=== PATIENT | female | born 1990 | race Caucasian/White ===

== ENCOUNTER 2018-02-10 10:46 | Inpatient (IN) | payer OTHER ==
[2018-02-10 11:05] VITALS: BMI 21.9
--- NOTE | 2018-02-10 12:16 | HP ---
COWS - Scale Resting Pulse: 0= [place] 80 or Below Sweatin= Chills/Flushing Restless Observation: 1= Difficult to Sit Still Pupil Size: 1= Pupils >than Normal Bone or Joint Aches: 2= Severe Diffuse Aches Runny Nose/ Eye Tearin= Runny Nose/Eyes GI Upset > 30mins: 2= Nausea/Diarrhea Tremor Observation: 2= Slight Tremor Visible Yawning Observation: 2= >3x During Session Anxiety or Irritability: 2=Irritable/Anxious Goose Flesh Skin: 0=Smooth Skin COWS Score: [address] [facility] Chief Complaint: opiate withdrawal sx Allergies/Adverse Reactions: Allergies Allergy/AdvReac Type Severity Reaction Status Date / Time Penicillins Allergy Severe Difficulty Verified 02/10/18 11:20 Breathing History of Present Illness: 28 years old female with long history of opiate nicotine dependence denies medical issue but gi distress from opiate withdrawal has depression and anxiety is admitted to detox Exam Limitations: No Limitations - Ebola screening Have you traveled outside of the country in the last 21 days: No Have you had contact with anyone from an Ebola affected area: No Have you been sick,other than usual withdrawal symptoms: No Do you have a fever: No - Review of Systems Constitutional: Loss of Appetite, Changes in sleep, Unintentional Wgt. Loss, Unexplained wgt Loss EENT: reports: No Symptoms Reported Respiratory: reports: SOB with Exertion, Productive cough Cardiac: reports: No Symptoms Reported GI: reports: Nausea, Poor Appetite, Poor Fluid Intake, Indigestion, Abdominal cramping : reports: No Symptoms Reported Musculoskeletal: reports: Back Pain, Joint Pain, Muscle Pain, Neck Pain Integumentary: reports: Change in Color (multiple skin abrasion on face and arms ) Neuro: reports: Tremors Endocrine: reports: No Symptoms Reported Hematology: reports: No Symptoms Reported Psychiatric: reports: Judgement Intact, Anxious, Depressed Other Systems: Reviewed and Negative Patient History - Patient Medical History Hx Anemia: No Hx Asthma: Yes (on MDI) Hx Chronic Obstructive Pulmonary Disease (COPD): No Hx Cancer: No Hx Cardiac Disorders: No Hx Congestive Heart Failure: No Hx Hypertension: No Hx Hypercholesterolemia: No Hx Pacemaker: No HX Cerebrovascular Accident: No Hx Seizures: No Hx Dementia: No Hx Diabetes: No Hx Gastrointestinal Disorders: No Hx Liver Disease: No Hx Genitourinary Disorders: No Hx Sexually Transmitted Disorders: No Hx Renal Disease (ESRD): No Hx Thyroid Disease: No Hx Human Immunodeficiency Virus (HIV): No Hx Hepatitis C: No Hx Depression: Yes Hx Suicide Attempt: No Hx Bipolar Disorder: No Hx Schizophrenia: No - Patient Surgical History Past Surgical History: No Hx Neurologic Surgery: No Hx Cataract Extraction: No Hx Cardiac Surgery: No Hx Lung Surgery: No Hx Breast Surgery: No Hx Breast Biopsy: No Hx Abdominal Surgery: No Hx Appendectomy: No Hx Cholecystectomy: No Hx Genitourinary Surgery: No Hx Section: No Hx Orthopedic Surgery: No Hx Hysterectomy: No - PPD History Previous Implant?: Yes Documented Results: Negative w/proof Implanted On Prior [facility] Admission?: Yes Date: 11/26/14 Results: 0MM PPD to be Administered?: Yes - Reproductive History Patient is a Female of Child Bearing Age (11 -55 yrs old): Yes Last Menstrual Period: 02/10/17 Patient : No - Smoking Cessation Smoking history: Current every day smoker Have you smoked in the past 12 months: Yes Aproximately how many cigarettes per day: 10 Cigars Per Day: 0 Hx Chewing Tobacco Use: No Initiated information on smoking cessation: Yes 'Breaking Loose' booklet given: 02/10/18 - Substance & Tx. History Hx Alcohol Use: No Hx Substance Use: Yes Substance Use Type: Cocaine, Heroin, Opiates Hx Substance Use Treatment: Yes (2011 [facility]) - Substances Abused Heroin Route: Inhalation Frequency: Daily Amount used: 1 BUNDLE Age of first use: 16 Date of Last Use: 02/10/18 Cocaine Route: Inhalation Frequency: Daily Amount used: 4-5 BAGS Age of first use: 15 Date of Last Use: 02/08/18 PCP Route: Oral Frequency: 1-3 times last 30 days Family Disease History - Family Disease History Family Disease History: Diabetes: Grandparent Admission Physical Exam BHS - Vital Signs Vital Signs: Vital Signs - 24 hr 02/10/18 10:59 Temperature 98.2 F Pulse Rate 76 Respiratory 17 Rate Blood Pressure 144/73 - Physical General Appearance: Yes: Appropriately Dressed, Mild Distress, Thin, Tremorous, Irritable, Sweating, Anxious HEENTM: Yes: Hearing grossly Normal, Normocephalic, Normal Voice Respiratory: Yes: Chest Non-Tender, Lungs Clear, No Respiratory Distress, No Accessory Muscle Use, Wheezing, Expiration Neck: Yes: Supple, Trachea in good position Breast: Yes: Breasts Symetrical, No Discharge Cardiology: Yes: Regular Rhythm, Regular Rate, S1, S2 Abdominal: Yes: Non Tender, Flat, Soft, Increased Bowel Sounds Genitourinary: Yes: Within Normal Limits Back: Yes: Normal Inspection Musculoskeletal: Yes: full range of Motion, Gait Steady, Back pain, Muscle Pain , Other (left foot) Extremities: Yes: Non-Tender, Tremors, Swelling (left ankle) Neurological: Yes: Alert, Motor Strength 5/5 (left foot weakness), Normal Response, Depressed Affect Integumentary: Yes: Warm, Rash, Track [place] Lymphatic: Yes: Within Normal Limits - Diagnostic (1) Dermatitis Current Visit: Yes Status: Acute (2) Asthma Current Visit: Yes Status: Chronic Qualifiers: Asthma severity: mild Asthma persistence: intermittent Asthma complication type: with status asthmaticus Qualified Code(s): J45.22 - Mild intermittent asthma with status asthmaticus (3) Weight loss Current Visit: Yes Status: Acute (4) GERD (gastroesophageal reflux disease) Current Visit: Yes Status: Chronic Qualifiers: Esophagitis presence: without esophagitis Qualified Code(s): K21.9 - Gastro -esophageal reflux disease without esophagitis (5) Anxiety and depression Current Visit: Yes Status: Suspected (6) Heroin dependence Current Visit: Yes Status: Acute (7) Nicotine dependence Current Visit: Yes Status: Acute Qualifiers: Nicotine product type: cigarettes Substance use status: in withdrawal Qualified Code(s): F17.213 - Nicotine dependence, cigarettes, with withdrawal (8) Left foot pain Current Visit: Yes Status: Acute Cleared for Admission [facility] - Detox or Rehab [facility] Level of Care: Medically Managed Detox Regimen/Protocol: Methadone [facility] Breath Alcohol Content Breath Alcohol Content: 0 Urine Pregancy Test - Result Urine Test Results: Negative- NO Line Present Urine Drug Screen - Results Drug Screen Negative: No Urine Drug Screen Results: ZOEY-Cocaine, OPI-Opiates, PCP-Phencyclidine, OXY- Oxycodone
[2018-02-10] MEDS ORDERED: MAG HYDROX/AL HYDROX/SIMETH 30 ML UNIT-DOSE CUP PO PRN (12:23)
[2018-02-10] MEDS ORDERED: NICOTINE POLACRILEX 2 MG GUM BUC PRN (12:23)
[2018-02-10] MEDS ORDERED: MAGNESIUM HYDROX 2400MG/30ML ORAL SUSPENSION 30 ML CUP PO PRN (12:23)
[2018-02-10] MEDS ORDERED: MAGNESIUM CITRATE 300 ML BOTTLE PO PRN (12:23)
[2018-02-10] MEDS ORDERED: MENTHOL/PHENOL 1 EACH UD MM PRN (12:23)
[2018-02-10] MEDS ORDERED: LOPERAMIDE HCL 2 MG CAPSULE PO PRN (12:23)
[2018-02-10] MEDS ORDERED: METHADONE HCL 10 MG TABLET (FOR DETOX USE ONLY) PO ONE ×2 (13:45→23:00)
--- NOTE | 2018-02-10 13:50 | CONSULT ---
[facility] Psychiatric Consult - Data Date of interview: 02/10/18 Admission source: [facility] Identifying data: This is 28 years old female, single, homeless, with long history of opiate, Cocaine, nicotine dependence denies medical issue but gi distress from opiate withdrawal has depression and anxiety is admitted to detox. As per murine ntoxicology positive for PCP ghulam. Substance Abuse History: - Smoking Cessation. Smoking history: Current every day smoker. Have you smoked in the past 12 months: Yes. Aproximately how many cigarettes per day: 10. Cigars Per Day: 0. Hx Chewing Tobacco Use: No. Initiated information on smoking cessation: Yes. 'Breaking Loose' booklet given : 02/10/18. - Substance & Tx. History. Hx Alcohol Use: No. Hx Substance Use: Yes. Substance Use Type: Cocaine, Heroin, Opiates. Hx Substance Use Treatment : Yes (2011). - Substances Abused. Heroin. Route: Inhalation. Frequency: Daily. Amount used: 1 BUNDLE. Age of first use: 16. Date of Last Use: 02/10/18. Cocaine. Route: Inhalation. Frequency: Daily. Amount used : 4-5 BAGS. Age of first use: 15. Date of Last Use: 02/08/18. PCP. Route : Oral. Frequency: 1-3 times last 30 days Medical History: Asthma, GERD, Weight loss history, Dermatitis history, Psychiatric History: Patient reports history of depression and anxiety, reports no medications taking prior to admission, poor historian with unclear psychiatric hospitalization history. Physical/Sexual Abuse/Trauma History: Unknown Additional Comment: Observation. Deto Unit Care Protocol Mental Status Exam - Mental Status Exam Alert and Oriented to: Person Cognitive Function: Fair Patient Appearance: Unkempt Mood: Sad Affect: Flat Patient Behavior: Sedated, Uncooperative Speech Pattern: Delayed Voice Loudness: Moderately Soft/Quiet Thought Process: Circumstantial, Thought Blocking Thought Disorder: Being Controlled Hallucinations: Denies Suicidal Ideation: Denies Homicidal Ideation: Denies Insight/Judgement: Fair Sleep: Fair Appetite: Weight loss Muscle strength/Tone: Moderate Hypotonicity Gait/Station: Shuffling Additional Comments: Observation. Deto Unit Care Protocol Psychiatric Findings - Problem List ([place] 1, 2,3) (1) Dermatitis Current Visit: Yes Status: Acute (2) Heroin dependence Current Visit: Yes Status: Acute (3) Nicotine dependence Current Visit: Yes Status: Acute Qualifiers: Nicotine product type: cigarettes Substance use status: in withdrawal Qualified Code(s): F17.213 - Nicotine dependence, cigarettes, with withdrawal (4) Asthma Current Visit: Yes Status: Chronic Qualifiers: Asthma severity: mild Asthma persistence: intermittent Asthma complication type: with status asthmaticus Qualified Code(s): J45.22 - Mild intermittent asthma with status asthmaticus (5) GERD (gastroesophageal reflux disease) Current Visit: Yes Status: Chronic Qualifiers: Esophagitis presence: without esophagitis Qualified Code(s): K21.9 - Gastro -esophageal reflux disease without esophagitis (6) Anxiety and depression Current Visit: Yes Status: Suspected (7) Eye bruise Current Visit: No Status: Acute Comment: fell and hit left eye 4 days ago. (8) Cocaine dependence Current Visit: No Status: Chronic (9) Crack cocaine use Current Visit: No Status: Chronic (10) Drug-induced mood disorder Current Visit: No Status: Chronic (11) Opioid dependence Current Visit: No Status: Chronic - Initial Treatment Plan Initial Treatment Plan: Observation. Deto Unit Care Protocol
[2018-02-10] MEDS: BACITRACIN 0.9 GM PACKET TP SCH ×3 (14:15→22:20)
[2018-02-10] MEDS: RANITIDINE HCL 150 MG TABLET (FP) PO SCH ×2 (14:17→22:20)
[2018-02-10] MEDS: diazePAM 5 MG TABLET PO PRN ×2 (14:17→22:30)
[2018-02-10] MEDS: NICOTINE 14 MG/24 HOURS TOPICAL PATCH TD SCH (14:17)
[2018-02-10] MEDS: THIAMINE HCL 100 MG TABLET (FP) PO SCH (22:47)
[2018-02-11 09:56] LABS: HEMATOCRIT 40.4 % (32.4-45.2); HEMOGLOBIN 13.7 GM/dL (10.7-15.3); MCH 29.9 pg (25.7-33.7); MCHC 33.9 g/dl (32.0-36.0); MEAN CELL VOLUME 88.2 fl (80-96); MEAN PLT VOLUME 10.3 fl (7.5-11.1); PLATELET COUNT 268 K/MM3 (134-434); RBC 4.58 M/mm3 (3.60-5.2); RDW 14.7 % (11.6-15.6); WHITE BLOOD COUNT 9.3 K/mm3 (4.0-10.0)
[2018-02-11] MEDS ORDERED: METHADONE HCL 10 MG TABLET (FOR DETOX USE ONLY) PO ONE (10:00)
--- NOTE | 2018-02-11 10:16 | PN ---
BHS COWS - Scale Resting Pulse: 0= [place] 80 or Below Sweatin= Chills/Flushing Restless Observation: 3= Extraneous Movement Pupil Size: 1= Pupils >than Normal Bone or Joint Aches: 2= Severe Diffuse Aches Runny Nose/ Eye Tearin= Runny Nose/Eyes GI Upset > 30mins: 2= Nausea/Diarrhea Tremor Observation of Outstretched Hands: 2= Slight Tremor Visible Yawning Observation: 1= 1-2x During Session Anxiety or Irritability: 2=Irritable/Anxious Goose Flesh Skin: 0=Smooth Skin COWS Score: 16 S Progress Note (SOAP) Subjective: alert,irritable,anxious,interrupted sleep,tremor,pain in the body and back Objective: 02/11/18 10:14 Vital Signs Temperature 98.4 F 02/11/18 09:06 Pulse Rate 70 02/11/18 09:06 Respiratory Rate 19 02/11/18 09:06 Blood Pressure 135/75 02/11/18 09:06 O2 Sat by Pulse Oximetry (%) ekg nsr,normal ecg qt/qtc 372/434 Laboratory Last Values WBC 9.3 K/mm3 (4.0-10.0) 02/11/18 06:00 RBC 4.58 M/mm3 (3.60-5.2) 02/11/18 06:00 Hgb 13.7 GM/dL (10.7-15.3) 02/11/18 06:00 Hct 40.4 % (32.4-45.2) 02/11/18 06:00 MCV 88.2 fl (80-96) 02/11/18 06:00 MCH 29.9 pg (25.7-33.7) 02/11/18 06:00 MCHC 33.9 g/dl (32.0-36.0) 02/11/18 06:00 RDW 14.7 % (11.6-15.6) D 02/11/18 06:00 Plt Count 268 K/MM3 (134-434) D 02/11/18 06:00 MPV 10.3 fl (7.5-11.1) 02/11/18 06:00 HIV 1&2 Antibody Screen Negative 02/10/18 12:45 HIV P24 Antigen Negative 02/10/18 12:45 labs pending Assessment: 02/11/18 10:15 withdrawal symptom Plan: continue detox
[2018-02-11] MEDS: PRENATAL VITAMINS W/ FOLIC ACID TABLET (FP) PO SCH (10:17)
[2018-02-11] MEDS: RANITIDINE HCL 150 MG TABLET (FP) PO SCH ×2 (10:17→22:14)
[2018-02-11] MEDS: BACITRACIN 0.9 GM PACKET TP SCH ×4 (10:18→22:14)
[2018-02-11] MEDS: NICOTINE 14 MG/24 HOURS TOPICAL PATCH TD SCH (10:20)
[2018-02-11] MEDS: diazePAM 5 MG TABLET PO PRN ×2 (10:21→22:14)
--- NOTE | 2018-02-11 11:32 | EKG ---
Test Reason : Blood Pressure : / mmHG Vent. Rate : 082 BPM Atrial Rate : 082 BPM P-R Int : 126 ms QRS Dur : 084 ms QT Int : 372 ms P-R-T Axes : 047 063 049 degrees QTc Int : 434 ms NORMAL SINUS RHYTHM NORMAL ECG Confirmed by MD WENDY, HERRERA ([id number]) on 02/11/2018 11:31:58 AM Referred By: Confirmed By:HERRERA NGUYEN MD
[2018-02-11 12:01] LABS: CHLORIDE 109 mmol/L (98-107); POTASSIUM 4.4 mmol/L (3.5-5.1); SODIUM 144 mmol/L (136-145)
[2018-02-11 12:10] LABS: ALBUMIN 3.7 g/dl (3.4-5.0); ALK PHOS 67 U/L (45-117); ANION GAP 7 (8-16); BILIRUBIN,TOTAL 0.3 mg/dL (0.2-1.0); BLOOD UREA NITROGEN 14 mg/dL (7-18); CO2 28 mmol/L (21-32); CREATININE 0.9 mg/dL (0.55-1.02); GLUCOSE,RANDOM 87 mg/dL (74-106); SGOT/AST 17 U/L (15-37); SGPT/ALT 20 U/L (12-78); TOT PROT 7.2 g/dl (6.4-8.2)
[2018-02-11] MEDS: THIAMINE HCL 100 MG TABLET (FP) PO SCH (22:14)
[2018-02-11] MEDS: ALBUTEROL SO4 8 GM HFA INHALER IH PRN (22:46)
[2018-02-11] MEDS ORDERED: ALBUTEROL SO4 2.5/IPRATROPIUM 0.5 INH SOL 3 ML VIAL.NEB. NEB PRN (23:10)
[2018-02-11] MEDS: P-EPHED 60MG/TRIPROLIDI 2.5MG TABLET PO PRN (23:39)
[2018-02-11] MEDS: guaiFENesin/D-METHORPHAN HB 10 ML UNIT-DOSE CUPS PO PRN (23:39)
[2018-02-12] MEDS ORDERED: METHADONE HCL 5 MG TABLET (FOR DETOX USE ONLY) PO ONE (10:00)
[2018-02-12] MEDS: RANITIDINE HCL 150 MG TABLET (FP) PO SCH ×2 (10:45→22:13)
[2018-02-12] MEDS: BACITRACIN 0.9 GM PACKET TP SCH ×4 (10:46→22:13)
[2018-02-12] MEDS: diazePAM 5 MG TABLET PO PRN ×3 (10:46→21:00)
[2018-02-12] MEDS: PRENATAL VITAMINS W/ FOLIC ACID TABLET (FP) PO SCH (10:46)
[2018-02-12] MEDS: NICOTINE 14 MG/24 HOURS TOPICAL PATCH TD SCH (10:48)
--- NOTE | 2018-02-12 11:46 | PN ---
BHS COWS - Scale Resting Pulse: 0= [place] 80 or Below Sweatin= Chills/Flushing Restless Observation: 3= Extraneous Movement Pupil Size: 1= Pupils >than Normal Bone or Joint Aches: 2= Severe Diffuse Aches Runny Nose/ Eye Tearin= Nasal Congestion GI Upset > 30mins: 2= Nausea/Diarrhea Tremor Observation of Outstretched Hands: 2= Slight Tremor Visible Yawning Observation: 1= 1-2x During Session Anxiety or Irritability: 2=Irritable/Anxious Goose Flesh Skin: 0=Smooth Skin COWS Score: 15 BHS Progress Note (SOAP) Subjective: alert,irritable,anxious,interrupted sleep,tremor,pain in the body Objective: 02/12/18 11:45 Vital Signs Temperature 97.4 F L 02/12/18 09:09 Pulse Rate 63 02/12/18 09:09 Respiratory Rate 18 02/12/18 09:09 Blood Pressure 104/63 02/12/18 09:09 O2 Sat by Pulse Oximetry (%) Laboratory Last Values WBC 9.3 K/mm3 (4.0-10.0) 02/11/18 06:00 RBC 4.58 M/mm3 (3.60-5.2) 02/11/18 06:00 Hgb 13.7 GM/dL (10.7-15.3) 02/11/18 06:00 Hct 40.4 % (32.4-45.2) 02/11/18 06:00 MCV 88.2 fl (80-96) 02/11/18 06:00 MCH 29.9 pg (25.7-33.7) 02/11/18 06:00 MCHC 33.9 g/dl (32.0-36.0) 02/11/18 06:00 RDW 14.7 % (11.6-15.6) D 02/11/18 06:00 Plt Count 268 K/MM3 (134-434) D 02/11/18 06:00 MPV 10.3 fl (7.5-11.1) 02/11/18 06:00 Sodium 144 mmol/L (136-145) 02/11/18 06:00 Potassium 4.4 mmol/L (3.5-5.1) 02/11/18 06:00 Chloride 109 mmol/L (98-107) H 02/11/18 06:00 Carbon Dioxide 28 mmol/L (21-32) 02/11/18 06:00 Anion Gap 7 (8-16) L 02/11/18 06:00 BUN 14 mg/dL (7-18) 02/11/18 06:00 Creatinine 0.9 mg/dL (0.55-1.02) 02/11/18 06:00 Creat Clearance w eGFR > 60 (>60) 02/11/18 06:00 Random Glucose 87 mg/dL (74-106) 02/11/18 06:00 Calcium 9.0 mg/dL (8.5-10.1) 02/11/18 06:00 Total Bilirubin 0.3 mg/dL (0.2-1.0) 02/11/18 06:00 AST 17 U/L (15-37) 02/11/18 06:00 ALT 20 U/L (12-78) 02/11/18 06:00 Alkaline Phosphatase 67 U/L (45-117) 02/11/18 06:00 Total Protein 7.2 g/dl (6.4-8.2) 02/11/18 06:00 Albumin 3.7 g/dl (3.4-5.0) 02/11/18 06:00 RPR Titer Nonreactive (NONREACTIVE) 02/11/18 06:00 HIV 1&2 Antibody Screen Negative 02/10/18 12:45 HIV P24 Antigen Negative 02/10/18 12:45 Assessment: 02/12/18 11:45 withdrawal symptom Plan: continue detox
[2018-02-12 18:02] LABS: URINE APPEARANCE CLEAR; URINE BILIRUBIN NEGATIVE (<2.0 mg/dL); URINE COLOR YELLOW; URINE GLUCOSE (UA) NEGATIVE (NEGATIVE); URINE KETONE NEGATIVE (NEGATIVE); URINE LEUK ESTERASE NEGATIVE (NEGATIVE); URINE NITRITE NEGATIVE (NEGATIVE); URINE PROTEIN NEGATIVE (NEGATIVE); URINE UROBILINOGEN NEGATIVE mg/dL (0.2-1.0)
[2018-02-12] MEDS: MELATONIN 5 MG TABLETS PO PRN (22:13)
[2018-02-12] MEDS: THIAMINE HCL 100 MG TABLET (FP) PO SCH (22:14)
[2018-02-12] MEDS: ALBUTEROL SO4 8 GM HFA INHALER IH PRN (22:20)
[2018-02-12] MEDS: guaiFENesin/D-METHORPHAN HB 10 ML UNIT-DOSE CUPS PO PRN (22:20)
[2018-02-13] MEDS: diazePAM 5 MG TABLET PO PRN ×3 (01:00→10:21)
[2018-02-13] MEDS ORDERED: METHADONE HCL 5 MG TABLET (FOR DETOX USE ONLY) PO ONE (10:00)
--- NOTE | 2018-02-13 10:10 | PN ---
BHS Progress Note (SOAP) Subjective: alert,irritable,anxious,interrupted sleep,pain in the body and back Objective: 02/13/18 10:08 Vital Signs Temperature 97.5 F L 02/13/18 07:41 Pulse Rate 74 02/13/18 07:41 Respiratory Rate 16 02/13/18 07:41 Blood Pressure 110/66 02/13/18 07:41 O2 Sat by Pulse Oximetry (%) Assessment: 02/13/18 10:10 withdrawal symptom Plan: continue detox
[2018-02-13] MEDS: BACITRACIN 0.9 GM PACKET TP SCH ×4 (10:20→22:11)
[2018-02-13] MEDS: PRENATAL VITAMINS W/ FOLIC ACID TABLET (FP) PO SCH (10:20)
[2018-02-13] MEDS: RANITIDINE HCL 150 MG TABLET (FP) PO SCH ×2 (10:20→22:10)
[2018-02-13] MEDS: guaiFENesin/D-METHORPHAN HB 10 ML UNIT-DOSE CUPS PO PRN ×2 (10:23→22:12)
[2018-02-13] MEDS: NICOTINE 14 MG/24 HOURS TOPICAL PATCH TD SCH (10:46)
[2018-02-13] MEDS: hydrOXYzine PAMOATE 50 MG CAPSULE (FP) PO PRN (13:19)
[2018-02-13] MEDS: THIAMINE HCL 100 MG TABLET (FP) PO SCH (22:10)
[2018-02-13] MEDS: MELATONIN 5 MG TABLETS PO PRN (22:13)
--- NOTE | 2018-02-14 09:36 | PN ---
S Progress Note (SOAP) Subjective: alert,irritable,anxious,interrupted sleep, Objective: 02/14/18 09:36 Vital Signs Temperature 98.0 F 02/14/18 09:17 Pulse Rate 92 H 02/14/18 09:17 Respiratory Rate 18 02/14/18 09:17 Blood Pressure 121/92 02/14/18 09:17 O2 Sat by Pulse Oximetry (%) Assessment: 02/14/18 09:36 withdrawal symptom Plan: continue detox,discharge in am
[2018-02-14] MEDS ORDERED: METHADONE HCL 10 MG TABLET (FOR DETOX USE ONLY) PO ONE (10:00)
[2018-02-14] MEDS: RANITIDINE HCL 150 MG TABLET (FP) PO SCH ×2 (10:27→22:16)
[2018-02-14] MEDS: NICOTINE 14 MG/24 HOURS TOPICAL PATCH TD SCH (10:27)
[2018-02-14] MEDS: PRENATAL VITAMINS W/ FOLIC ACID TABLET (FP) PO SCH (10:27)
[2018-02-14] MEDS: BACITRACIN 0.9 GM PACKET TP SCH ×3 (10:27→22:15)
[2018-02-14] MEDS: hydrOXYzine PAMOATE 50 MG CAPSULE (FP) PO PRN ×3 (10:29→22:16)
[2018-02-14] MEDS: ACETAMINOPHEN 325 MG TABLET (FP) PO PRN ×2 (10:30→17:10)
[2018-02-14] MEDS ORDERED: cloNIDine HCL 0.1 MG TABLET PO ONE (11:24)
[2018-02-14] MEDS: guaiFENesin/D-METHORPHAN HB 10 ML UNIT-DOSE CUPS PO PRN (20:40)
[2018-02-14] MEDS: P-EPHED 60MG/TRIPROLIDI 2.5MG TABLET PO PRN (20:41)
[2018-02-14] MEDS: THIAMINE HCL 100 MG TABLET (FP) PO SCH (22:15)
[2018-02-14] MEDS: cloNIDine HCL 0.1 MG TABLET PO SCH (22:16)
[2018-02-15] MEDS: hydrOXYzine PAMOATE 50 MG CAPSULE (FP) PO PRN ×2 (02:16→09:08)
[2018-02-15] MEDS ORDERED: METHADONE HCL 5 MG TABLET (FOR DETOX USE ONLY) PO ONE (06:00)
--- NOTE | 2018-02-15 09:03 | PN ---
S Progress Note (SOAP) Subjective: alert,no complaint Objective: 02/15/18 09:02 Vital Signs Temperature 96.4 F L 02/15/18 07:26 Pulse Rate 69 02/15/18 07:26 Respiratory Rate 16 02/15/18 07:26 Blood Pressure 99/54 02/15/18 07:26 O2 Sat by Pulse Oximetry (%) Assessment: 02/15/18 09:02 detox completed,no withdrawal symptom Plan: discharge today,follow up with after care program as arrangement
--- NOTE | 2018-02-15 09:05 | DS ---
[facility] Detox Discharge Summary Admission Date: 02/10/18 Discharge Date: 02/15/18 - History Present History: Opioid Dependence Additional Comments: follow up with after care program as arrangement Pertinent Past History: asthma gerd nicotine dependence - Physical Exam Results Vital Signs: Vital Signs Temperature 96.4 F L 02/15/18 07:26 Pulse Rate 69 02/15/18 07:26 Respiratory Rate 16 02/15/18 07:26 Blood Pressure 99/54 02/15/18 07:26 O2 Sat by Pulse Oximetry (%) Pertinent Admission Physical Exam Findings: withdrawal signs and symptom Vital Signs Temperature 96.4 F L 02/15/18 07:26 Pulse Rate 69 02/15/18 07:26 Respiratory Rate 16 02/15/18 07:26 Blood Pressure 99/54 02/15/18 07:26 O2 Sat by Pulse Oximetry (%) Laboratory Last Values WBC 9.3 K/mm3 (4.0-10.0) 02/11/18 06:00 RBC 4.58 M/mm3 (3.60-5.2) 02/11/18 06:00 Hgb 13.7 GM/dL (10.7-15.3) 02/11/18 06:00 Hct 40.4 % (32.4-45.2) 02/11/18 06:00 MCV 88.2 fl (80-96) 02/11/18 06:00 MCH 29.9 pg (25.7-33.7) 02/11/18 06:00 MCHC 33.9 g/dl (32.0-36.0) 02/11/18 06:00 RDW 14.7 % (11.6-15.6) D 02/11/18 06:00 Plt Count 268 K/MM3 (134-434) D 02/11/18 06:00 MPV 10.3 fl (7.5-11.1) 02/11/18 06:00 Sodium 144 mmol/L (136-145) 02/11/18 06:00 Potassium 4.4 mmol/L (3.5-5.1) 02/11/18 06:00 Chloride 109 mmol/L (98-107) H 02/11/18 06:00 Carbon Dioxide 28 mmol/L (21-32) 02/11/18 06:00 Anion Gap 7 (8-16) L 02/11/18 06:00 BUN 14 mg/dL (7-18) 02/11/18 06:00 Creatinine 0.9 mg/dL (0.55-1.02) 02/11/18 06:00 Creat Clearance w eGFR > 60 (>60) 02/11/18 06:00 Random Glucose 87 mg/dL (74-106) 02/11/18 06:00 Calcium 9.0 mg/dL (8.5-10.1) 02/11/18 06:00 Total Bilirubin 0.3 mg/dL (0.2-1.0) 02/11/18 06:00 AST 17 U/L (15-37) 02/11/18 06:00 ALT 20 U/L (12-78) 02/11/18 06:00 Alkaline Phosphatase 67 U/L (45-117) 02/11/18 06:00 Total Protein 7.2 g/dl (6.4-8.2) 02/11/18 06:00 Albumin 3.7 g/dl (3.4-5.0) 02/11/18 06:00 Urine Color Yellow 02/12/18 14:00 Urine Appearance Clear 02/12/18 14:00 Urine pH 7.0 (5.0-8.0) 02/12/18 14:00 Ur Specific [place] 1.016 (1.001-1.035) 02/12/18 14:00 Urine Protein Negative (NEGATIVE) 02/12/18 14:00 Urine Glucose (UA) Negative (NEGATIVE) 02/12/18 14:00 Urine Ketones Negative (NEGATIVE) 02/12/18 14:00 Urine Blood Negative (NEGATIVE) 02/12/18 14:00 Urine Nitrite Negative (NEGATIVE) 02/12/18 14:00 Urine Bilirubin Negative (<2.0 mg/dL) 02/12/18 14:00 Urine Urobilinogen Negative mg/dL (0.2-1.0) 02/12/18 14:00 Ur Leukocyte Esterase Negative (NEGATIVE) 02/12/18 14:00 RPR Titer Nonreactive (NONREACTIVE) 02/11/18 06:00 HIV 1&2 Antibody Screen Negative 02/10/18 12:45 HIV P24 Antigen Negative 02/10/18 12:45 - Treatment Hospital Course: Detox Protocol Followed, Detoxed Safely, Responded well, Discharged Condition Good Patient has Accepted a Rehab Referral to: declined - Medication Discharge Medications: Ambulatory Orders Albuterol Sulfate Inhaler - [Ventolin Hfa Inhaler -] 1 - 2 inh PO QID 02/10/18 - Diagnosis (1) Opioid dependence with withdrawal Current Visit: Yes Status: Acute (2) Nicotine dependence Current Visit: Yes Status: Acute Qualifiers: Nicotine product type: cigarettes Substance use status: in withdrawal Qualified Code(s): F17.213 - Nicotine dependence, cigarettes, with withdrawal (3) Asthma Current Visit: Yes Status: Chronic Qualifiers: Asthma severity: mild Asthma persistence: intermittent Asthma complication type: with status asthmaticus Qualified Code(s): J45.22 - Mild intermittent asthma with status asthmaticus (4) GERD (gastroesophageal reflux disease) Current Visit: Yes Status: Chronic Qualifiers: Esophagitis presence: without esophagitis Qualified Code(s): K21.9 - Gastro -esophageal reflux disease without esophagitis - AMA Did Patient Leave Against Medical Advice: No
[2018-02-15] MEDS: RANITIDINE HCL 150 MG TABLET (FP) PO SCH (09:06)
[2018-02-15] MEDS: cloNIDine HCL 0.1 MG TABLET PO SCH (09:06)
[2018-02-15] MEDS: NICOTINE 14 MG/24 HOURS TOPICAL PATCH TD SCH (09:06)
[2018-02-15] MEDS: BACITRACIN 0.9 GM PACKET TP SCH (09:06)
[2018-02-15] MEDS: PRENATAL VITAMINS W/ FOLIC ACID TABLET (FP) PO SCH (09:06)
[2018-02-15] MEDS: guaiFENesin/D-METHORPHAN HB 10 ML UNIT-DOSE CUPS PO PRN (09:17)
[2018-02-15 11:24] VITALS: BP 90/50; PULSE 77; TEMP 96.8
== END 2018-02-15 09:22 | disposition home or self-care (01) | DRG 773 ==
LOC: YASAS 10:46 → Y6N 13:06
PROVIDERS: ADMIT Surgery; ATTEND Surgery
PROC: HZ2ZZZZ Detoxification Services for Substance Abuse Treatment (ICD-10-PCS; principal; 2018-02-10)
DX: F11.23 Opioid dependence with withdrawal (principal); F14.20 Cocaine dependence, uncomplicated; F17.210 Nicotine dependence, cigarettes, uncomplicated; F41.8 Other specified anxiety disorders; F19.24 Other psychoactive substance dependence with psychoactive substance-induced mood disorder; K21.9 Gastro-esophageal reflux disease without esophagitis; L30.9 Dermatitis, unspecified; M25.572 Pain in left ankle and joints of left foot; R63.4 Abnormal weight loss; Z68.21 Body mass index [BMI] 21.0-21.9, adult; S00.12XA Contusion of left eyelid and periocular area, initial encounter; W19.XXXA Unspecified fall, initial encounter; Y93.89 Activity, other specified; Y92.89 Other specified places as the place of occurrence of the external cause; Y99.8 Other external cause status
CPT/HCPCS: 36415; 73630-TC-LT; 80053; 81003; 85027; 86593; 87389; 93005; 93010; 94640; J0735; J7620

== ENCOUNTER 2020-06-17 08:31 | Inpatient (IN) | payer OTHER ==
[2020-06-17 09:32] VITALS: BMI 22.6
[2020-06-17] MEDS ORDERED: METHADONE HCL 10 MG TABLET (FOR DETOX USE ONLY) PO ONE (10:14)
[2020-06-17] MEDS ORDERED: ACETAMINOPHEN 325 MG TABLET (FP) PO PRN (10:14)
[2020-06-17] MEDS ORDERED: MAG HYDROX/AL HYDROX/SIMETH 30 ML UNIT-DOSE CUP PO PRN (10:14)
[2020-06-17] MEDS ORDERED: BISMUTH SUBSALICYLATE 262 MG/15 ML BTL PO PRN (10:14)
[2020-06-17] MEDS ORDERED: ONDANSETRON *ODT* 4 MG TABLET SL PRN (10:14)
[2020-06-17] MEDS ORDERED: MAGNESIUM CITRATE 300 ML BOTTLE PO PRN (10:14)
[2020-06-17] MEDS ORDERED: MAGNESIUM HYDROX 2400MG/30ML ORAL SUSPENSION 30 ML CUP PO PRN (10:14)
[2020-06-17] MEDS ORDERED: MENTHOL/PHENOL 1 EACH UD MM PRN (10:14)
[2020-06-17] MEDS ORDERED: ALBUTEROL SO4 HFA INHALER IH PRN (10:17)
[2020-06-17] MEDS: chlordiazePOXIDE HCL 25 MG CAPSULE PO SCH ×3 (11:02→22:01)
[2020-06-17] MEDS: PRENATAL VITAMINS W/ FOLIC ACID TABLET (FP) PO SCH (11:09)
[2020-06-17] MEDS: NICOTINE POLACRILEX 2 MG GUM BUC PRN ×2 (11:20→22:04)
[2020-06-17] MEDS: ACETAMINOPHEN 325 MG TABLET (FP) PO PRN ×2 (11:20→17:09)
[2020-06-17] MEDS ORDERED: hydrOXYzine PAMOATE 25 MG CAPSULE (FP) PO SCH (14:00)
[2020-06-17 14:31] LABS: POTASSIUM 3.9 mmol/L (3.5-5.1)
[2020-06-17 14:34] LABS: HEMATOCRIT 39.3 % (32.4-45.2); HEMOGLOBIN 13.2 GM/dL (10.7-15.3); MCH 30.8 pg (25.7-33.7); MCHC 33.5 g/dl (32.0-36.0); MEAN CELL VOLUME 92.1 fl (80-96); MEAN PLT VOLUME 10.5 fl (7.5-11.1); PLATELET COUNT 214 K/MM3 (134-434); RBC 4.27 M/mm3 (3.60-5.2); RDW 14.2 % (11.6-15.6); WHITE BLOOD COUNT 6.3 K/mm3 (4.0-10.0)
[2020-06-17 14:38] LABS: ALBUMIN 3.8 g/dl (3.4-5.0); BLOOD UREA NITROGEN 17.9 mg/dL (7-18); CALCIUM 8.9 mg/dL (8.5-10.1)
[2020-06-17 14:43] LABS: BILIRUBIN,TOTAL 0.4 mg/dL (0.2-1); CREATININE 0.8 mg/dL (0.55-1.3); TOT PROT 7.1 g/dl (6.4-8.2)
[2020-06-17] MEDS: hydrOXYzine PAMOATE 25 MG CAPSULE (FP) PO PRN ×2 (15:17→22:01)
[2020-06-17 15:27] LABS: HIV INTERPRETATION NEGATIVE (NEGATIVE)
[2020-06-17] MEDS: METHOCARBAMOL 500 MG TABLET PO PRN (17:08)
[2020-06-17] MEDS: chlordiazePOXIDE HCL 25 MG CAPSULE PO PRN (19:51)
[2020-06-17] MEDS: THIAMINE HCL 100 MG TABLET (FP) PO SCH (22:01)
[2020-06-17] MEDS: MELATONIN 5 MG TABLETS PO SCH (22:01)
[2020-06-18] MEDS: chlordiazePOXIDE HCL 25 MG CAPSULE PO PRN ×2 (00:46→14:27)
[2020-06-18] MEDS: IBUPROFEN 400 MG TABLET (FP) PO PRN (00:46)
[2020-06-18] MEDS: cloNIDine HCL 0.1 MG TABLET PO PRN ×3 (00:47→18:48)
[2020-06-18] MEDS: hydrOXYzine PAMOATE 25 MG CAPSULE (FP) PO PRN ×4 (04:35→22:11)
[2020-06-18] MEDS: chlordiazePOXIDE HCL 25 MG CAPSULE PO SCH ×4 (05:12→23:05)
[2020-06-18] MEDS ORDERED: METHADONE HCL 10 MG TABLET (FOR DETOX USE ONLY) ONE (09:05)
[2020-06-18] MEDS ORDERED: METHADONE HCL 5 MG TABLET (FOR DETOX USE ONLY) ONE (09:05)
[2020-06-18] MEDS ORDERED: METHADONE (DETOX) 20 MG, METHADONE (DETOX) 5 MG PO ONE (10:00)
[2020-06-18] MEDS: PRENATAL VITAMINS W/ FOLIC ACID TABLET (FP) PO SCH (10:00)
[2020-06-18] MEDS: METHOCARBAMOL 500 MG TABLET PO PRN ×3 (10:04→22:12)
[2020-06-18] MEDS: NICOTINE POLACRILEX 2 MG GUM BUC PRN ×2 (12:45→14:59)
[2020-06-18] MEDS: ACETAMINOPHEN 325 MG TABLET (FP) PO PRN (17:46)
[2020-06-18] MEDS ORDERED: traZODone HCL 50 MG TABLET (FP) PO SCH (22:00)
[2020-06-18] MEDS: MELATONIN 5 MG TABLETS PO SCH (22:11)
[2020-06-18] MEDS: THIAMINE HCL 100 MG TABLET (FP) PO SCH (22:11)
[2020-06-18] MEDS: traZODone HCL 50 MG TABLET (FP) PO SCH (23:05)
[2020-06-19] MEDS: chlordiazePOXIDE HCL 25 MG CAPSULE PO SCH ×4 (07:15→21:59)
[2020-06-19] MEDS: hydrOXYzine PAMOATE 25 MG CAPSULE (FP) PO PRN ×3 (07:16→17:04)
[2020-06-19] MEDS: NICOTINE POLACRILEX 2 MG GUM BUC PRN ×2 (07:51→15:10)
[2020-06-19] MEDS ORDERED: METHADONE HCL 10 MG TABLET (FOR DETOX USE ONLY) PO ONE (10:00)
[2020-06-19] MEDS: PRENATAL VITAMINS W/ FOLIC ACID TABLET (FP) PO SCH (10:02)
[2020-06-19] MEDS: LIDOCAINE 5% TOPICAL PATCH TP SCH (11:24)
[2020-06-19] MEDS: IBUPROFEN 400 MG TABLET (FP) PO PRN ×2 (11:25→22:12)
[2020-06-19] MEDS: METHOCARBAMOL 500 MG TABLET PO PRN (13:37)
[2020-06-19] MEDS: ACETAMINOPHEN 325 MG TABLET (FP) PO PRN (17:06)
[2020-06-19] MEDS: cloNIDine HCL 0.1 MG TABLET PO PRN (20:26)
[2020-06-19] MEDS: MELATONIN 5 MG TABLETS PO SCH (21:53)
[2020-06-19] MEDS: THIAMINE HCL 100 MG TABLET (FP) PO SCH (21:53)
[2020-06-19] MEDS: traZODone HCL 50 MG TABLET (FP) PO SCH (21:59)
[2020-06-19] MEDS: LIDOCAINE PATCH REMOVAL MC SCH (22:01)
[2020-06-20] MEDS ORDERED: chlordiazePOXIDE HCL 10 MG CAPSULE PO PRN
[2020-06-20] MEDS: chlordiazePOXIDE HCL 10 MG CAPSULE PO SCH ×4 (05:22→22:16)
[2020-06-20] MEDS: hydrOXYzine PAMOATE 25 MG CAPSULE (FP) PO PRN (05:25)
[2020-06-20] MEDS: ACETAMINOPHEN 325 MG TABLET (FP) PO PRN (07:56)
[2020-06-20] MEDS ORDERED: METHADONE HCL 10 MG TABLET (FOR DETOX USE ONLY) ONE (08:52)
[2020-06-20] MEDS ORDERED: METHADONE HCL 5 MG TABLET (FOR DETOX USE ONLY) ONE (08:52)
[2020-06-20] MEDS ORDERED: METHADONE (DETOX) 10 MG, METHADONE (DETOX) 5 MG PO ONE (10:00)
[2020-06-20] MEDS: LIDOCAINE 5% TOPICAL PATCH TP SCH (10:12)
[2020-06-20] MEDS: PRENATAL VITAMINS W/ FOLIC ACID TABLET (FP) PO SCH (10:13)
[2020-06-20] MEDS: IBUPROFEN 400 MG TABLET (FP) PO PRN (10:35)
[2020-06-20] MEDS: hydrOXYzine PAMOATE 50 MG CAPSULE (FP) PO PRN ×3 (10:35→22:16)
[2020-06-20] MEDS: METHOCARBAMOL 500 MG TABLET PO PRN ×2 (11:25→22:17)
[2020-06-20] MEDS: NICOTINE POLACRILEX 2 MG GUM BUC PRN ×2 (16:45→22:18)
[2020-06-20] MEDS: THIAMINE HCL 100 MG TABLET (FP) PO SCH (22:16)
[2020-06-20] MEDS: MELATONIN 5 MG TABLETS PO SCH (22:16)
[2020-06-20] MEDS: traZODone HCL 50 MG TABLET (FP) PO SCH (22:16)
[2020-06-20] MEDS: LIDOCAINE PATCH REMOVAL MC SCH (22:18)
[2020-06-21] MEDS ORDERED: chlordiazePOXIDE HCL 10 MG CAPSULE PO SCH (05:00)
[2020-06-21] MEDS: hydrOXYzine PAMOATE 50 MG CAPSULE (FP) PO PRN (05:22)
[2020-06-21] MEDS: METHOCARBAMOL 500 MG TABLET PO PRN (07:14)
[2020-06-21 07:56] VITALS: TEMP 97.3
[2020-06-21 09:44] VITALS: BP 120/67; PULSE 95
[2020-06-21] MEDS ORDERED: METHADONE HCL 10 MG TABLET (FOR DETOX USE ONLY) PO ONE (10:00)
[2020-06-21] MEDS: LIDOCAINE 5% TOPICAL PATCH TP SCH (10:24)
[2020-06-21] MEDS: PRENATAL VITAMINS W/ FOLIC ACID TABLET (FP) PO SCH (10:24)
[2020-06-21] MEDS: IBUPROFEN 400 MG TABLET (FP) PO PRN (10:27)
[2020-06-21] MEDS: NICOTINE POLACRILEX 2 MG GUM BUC PRN (10:37)
[2020-06-21] MEDS ORDERED: cloNIDine HCL 0.1 MG TABLET PO PRN ×2 (12:30→12:36)
[2020-06-22] MEDS ORDERED: chlordiazePOXIDE HCL 10 MG CAPSULE PO ONE (05:00)
[2020-06-22] MEDS ORDERED: METHADONE HCL 5 MG TABLET (FOR DETOX USE ONLY) PO ONE (06:00)
== END 2020-06-21 12:52 | disposition home or self-care (01) | DRG 773 ==
LOC: YASAS 08:31 → Y6N 10:00
PROVIDERS: ADMIT Allergy & Immunology; ATTEND Allergy & Immunology
PROC: HZ2ZZZZ Detoxification Services for Substance Abuse Treatment (ICD-10-PCS; principal; 2020-06-17)
DX: F11.23 Opioid dependence with withdrawal (principal); F10.230 Alcohol dependence with withdrawal, uncomplicated; F14.20 Cocaine dependence, uncomplicated; F17.210 Nicotine dependence, cigarettes, uncomplicated; F19.24 Other psychoactive substance dependence with psychoactive substance-induced mood disorder; F41.9 Anxiety disorder, unspecified; F32.9 Major depressive disorder, single episode, unspecified; J45.909 Unspecified asthma, uncomplicated; K21.9 Gastro-esophageal reflux disease without esophagitis; L30.9 Dermatitis, unspecified; Z88.0 Allergy status to penicillin; Z91.013 Allergy to seafood; Z91.19 Patient's noncompliance with other medical treatment and regimen
CPT/HCPCS: 36415; 80053; 81025; 85027; 86780; 87389; C9803; J0735; Q0162; U0003

== ENCOUNTER 2020-08-12 11:00 | Inpatient (IN) | payer OTHER ==
[2020-08-12 14:23] VITALS: BMI 23.9
[2020-08-12] MEDS ORDERED: BISMUTH SUBSALICYLATE 524 MG/30 ML UD PO PRN (16:29)
[2020-08-12] MEDS ORDERED: IBUPROFEN 400 MG TABLET (FP) PO PRN (16:29)
[2020-08-12] MEDS ORDERED: ALBUTEROL SO4 HFA INHALER IH PRN (16:29)
[2020-08-12] MEDS ORDERED: MAG HYDROX/AL HYDROX/SIMETH 30 ML UNIT-DOSE CUP PO PRN (16:29)
[2020-08-12] MEDS ORDERED: MAGNESIUM HYDROX 2400MG/30ML ORAL SUSPENSION 30 ML CUP PO PRN (16:29)
[2020-08-12] MEDS ORDERED: ACETAMINOPHEN 325 MG TABLET (FP) PO PRN ×2 (16:29)
[2020-08-12] MEDS ORDERED: MENTHOL/PHENOL 1 EACH UD MM PRN (16:29)
[2020-08-12] MEDS ORDERED: ONDANSETRON *ODT* 4 MG TABLET SL PRN (16:29)
[2020-08-12] MEDS ORDERED: MAGNESIUM CITRATE 300 ML BOTTLE PO PRN (16:29)
[2020-08-12] MEDS: METHOCARBAMOL 500 MG TABLET PO PRN (17:10)
[2020-08-12] MEDS: hydrOXYzine PAMOATE 25 MG CAPSULE (FP) PO SCH ×2 (17:10→22:34)
[2020-08-12] MEDS ORDERED: METHADONE HCL 10 MG TABLET (FOR DETOX USE ONLY) PO ONE (17:15)
[2020-08-12] MEDS: NICOTINE 21 MG/24 HOURS TOPICAL PATCH TD SCH (18:36)
[2020-08-12] MEDS: THIAMINE HCL 100 MG TABLET (FP) PO SCH (22:35)
[2020-08-12] MEDS: MELATONIN 5 MG TABLETS PO SCH (22:35)
[2020-08-13] MEDS: hydrOXYzine PAMOATE 25 MG CAPSULE (FP) PO SCH ×5 (06:30→21:46)
[2020-08-13] MEDS ORDERED: METHADONE HCL 10 MG TABLET (FOR DETOX USE ONLY) ONE (09:13)
[2020-08-13] MEDS ORDERED: METHADONE HCL 5 MG TABLET (FOR DETOX USE ONLY) ONE (09:13)
[2020-08-13] MEDS ORDERED: METHADONE (DETOX) 20 MG, METHADONE (DETOX) 5 MG PO ONE (10:00)
[2020-08-13] MEDS: NICOTINE 21 MG/24 HOURS TOPICAL PATCH TD SCH (10:03)
[2020-08-13] MEDS: PRENATAL VITAMINS W/ FOLIC ACID TABLET (FP) PO SCH (10:03)
[2020-08-13 13:06] LABS: HEMATOCRIT 39.3 % (32.4-45.2); HEMOGLOBIN 13.2 GM/dL (10.7-15.3); MCH 30.3 pg (25.7-33.7); MCHC 33.5 g/dl (32.0-36.0); MEAN CELL VOLUME 90.4 fl (80-96); MEAN PLT VOLUME 10.1 fl (7.5-11.1); PLATELET COUNT 237 K/MM3 (134-434); RBC 4.35 M/mm3 (3.60-5.2); RDW 14.2 % (11.6-15.6); WHITE BLOOD COUNT 6.9 K/mm3 (4.0-10.0)
[2020-08-13 13:10] LABS: CALCIUM 8.6 mg/dL (8.5-10.1)
[2020-08-13 13:11] LABS: ALBUMIN 3.2 g/dl (3.4-5.0)
[2020-08-13 13:14] LABS: CREATININE 0.8 mg/dL (0.55-1.3)
[2020-08-13 13:15] LABS: BILIRUBIN,TOTAL 0.8 mg/dL (0.2-1); TOT PROT 6.3 g/dl (6.4-8.2)
[2020-08-13 14:04] LABS: HIV INTERPRETATION NEGATIVE (NEGATIVE)
[2020-08-13] MEDS: cloNIDine HCL 0.1 MG TABLET PO PRN (15:03)
[2020-08-13] MEDS: METHOCARBAMOL 500 MG TABLET PO PRN (16:24)
[2020-08-13] MEDS: THIAMINE HCL 100 MG TABLET (FP) PO SCH (21:46)
[2020-08-13] MEDS: MELATONIN 5 MG TABLETS PO SCH (21:47)
[2020-08-14] MEDS: hydrOXYzine PAMOATE 25 MG CAPSULE (FP) PO SCH ×5 (06:13→22:00)
[2020-08-14] MEDS: cloNIDine HCL 0.1 MG TABLET PO PRN (06:16)
[2020-08-14] MEDS ORDERED: METHADONE HCL 10 MG TABLET (FOR DETOX USE ONLY) PO ONE (10:00)
[2020-08-14] MEDS: PRENATAL VITAMINS W/ FOLIC ACID TABLET (FP) PO SCH (10:03)
[2020-08-14] MEDS: METHOCARBAMOL 500 MG TABLET PO PRN ×2 (10:03→23:59)
[2020-08-14] MEDS: NICOTINE 21 MG/24 HOURS TOPICAL PATCH TD SCH (10:06)
[2020-08-14] MEDS: diazePAM 5 MG TABLET PO PRN ×2 (13:42→20:39)
[2020-08-14] MEDS: MELATONIN 5 MG TABLETS PO SCH (21:09)
[2020-08-14] MEDS: CLOTRIMAZOLE 1% VAGINAL CREAM WITH APPLICATOR 45 GM TUBE VG SCH (21:09)
[2020-08-14] MEDS: THIAMINE HCL 100 MG TABLET (FP) PO SCH (22:00)
[2020-08-15] MEDS: diazePAM 5 MG TABLET PO PRN ×3 (03:37→22:04)
[2020-08-15] MEDS: hydrOXYzine PAMOATE 25 MG CAPSULE (FP) PO SCH ×2 (07:32→09:26)
[2020-08-15] MEDS: NICOTINE POLACRILEX 2 MG GUM BUC PRN ×3 (08:45→17:01)
[2020-08-15] MEDS ORDERED: METHADONE HCL 5 MG TABLET (FOR DETOX USE ONLY) ONE (09:13)
[2020-08-15] MEDS ORDERED: METHADONE HCL 10 MG TABLET (FOR DETOX USE ONLY) ONE (09:13)
[2020-08-15] MEDS: METHOCARBAMOL 500 MG TABLET PO PRN (09:26)
[2020-08-15] MEDS: NICOTINE 21 MG/24 HOURS TOPICAL PATCH TD SCH (09:31)
[2020-08-15] MEDS: PRENATAL VITAMINS W/ FOLIC ACID TABLET (FP) PO SCH (09:32)
[2020-08-15] MEDS ORDERED: METHADONE (DETOX) 10 MG, METHADONE (DETOX) 5 MG PO ONE (10:00)
[2020-08-15] MEDS: hydrOXYzine PAMOATE 50 MG CAPSULE (FP) PO SCH ×4 (11:01→22:03)
[2020-08-15] MEDS: traZODone HCL 100 MG TABLET (FP) PO SCH (20:06)
[2020-08-15] MEDS: MELATONIN 5 MG TABLETS PO SCH (22:03)
[2020-08-15] MEDS: THIAMINE HCL 100 MG TABLET (FP) PO SCH (22:03)
[2020-08-15] MEDS: CLOTRIMAZOLE 1% VAGINAL CREAM WITH APPLICATOR 45 GM TUBE VG SCH (22:04)
[2020-08-16] MEDS: hydrOXYzine PAMOATE 50 MG CAPSULE (FP) PO SCH ×5 (05:48→23:32)
[2020-08-16] MEDS ORDERED: METHADONE HCL 10 MG TABLET (FOR DETOX USE ONLY) PO ONE ×2 (06:00→10:00)
[2020-08-16] MEDS: PRENATAL VITAMINS W/ FOLIC ACID TABLET (FP) PO SCH (10:19)
[2020-08-16] MEDS: NICOTINE 21 MG/24 HOURS TOPICAL PATCH TD SCH (10:20)
[2020-08-16] MEDS: NICOTINE POLACRILEX 2 MG GUM BUC PRN ×3 (11:45→17:06)
[2020-08-16] MEDS ORDERED: FLUCONAZOLE 150 MG TABLET PO ONE (12:15)
[2020-08-16] MEDS: diazePAM 5 MG TABLET PO PRN ×2 (13:08→21:00)
[2020-08-16] MEDS ORDERED: COLLOIDAL OATMEAL 1 BAR EACH TP PRN (17:07)
[2020-08-16] MEDS: METHOCARBAMOL 500 MG TABLET PO PRN (18:22)
[2020-08-16] MEDS ORDERED: MINERAL OIL/PETROLAT/WATER TOPICAL CREAM 113 GM JAR TP SCH (19:00)
[2020-08-16] MEDS: THIAMINE HCL 100 MG TABLET (FP) PO SCH (21:00)
[2020-08-16] MEDS: traZODone HCL 100 MG TABLET (FP) PO SCH (21:00)
[2020-08-16] MEDS: MELATONIN 5 MG TABLETS PO SCH (21:00)
[2020-08-16] MEDS: CLOTRIMAZOLE 1% VAGINAL CREAM WITH APPLICATOR 45 GM TUBE VG SCH (21:02)
[2020-08-16 22:51] VITALS: TEMP 97.1
[2020-08-17] MEDS: hydrOXYzine PAMOATE 50 MG CAPSULE (FP) PO SCH (05:44)
[2020-08-17] MEDS ORDERED: METHADONE HCL 5 MG TABLET (FOR DETOX USE ONLY) PO ONE (06:00)
[2020-08-17 06:51] VITALS: BP 113/63; PULSE 88
== END 2020-08-17 07:10 | disposition home or self-care (01) | DRG 773 ==
LOC: YASAS 11:00 → Y6N 14:28
PROVIDERS: ADMIT Allergy & Immunology; ATTEND Allergy & Immunology
PROC: HZ2ZZZZ Detoxification Services for Substance Abuse Treatment (ICD-10-PCS; principal; 2020-08-12)
DX: F11.23 Opioid dependence with withdrawal (principal); F10.230 Alcohol dependence with withdrawal, uncomplicated; F14.20 Cocaine dependence, uncomplicated; F12.10 Cannabis abuse, uncomplicated; F17.210 Nicotine dependence, cigarettes, uncomplicated; F41.9 Anxiety disorder, unspecified; F32.9 Major depressive disorder, single episode, unspecified; F19.280 Other psychoactive substance dependence with psychoactive substance-induced anxiety disorder; F19.282 Other psychoactive substance dependence with psychoactive substance-induced sleep disorder; J45.909 Unspecified asthma, uncomplicated; N76.0 Acute vaginitis; Z88.0 Allergy status to penicillin; Z91.013 Allergy to seafood
CPT/HCPCS: 36415; 80053; 85027; 86780; 87389; C9803; J0735; Q0162; U0003

== ENCOUNTER 2020-09-07 11:18 | Inpatient (IN) | payer OTHER ==
[2020-09-07 12:13] VITALS: BMI 21.9
[2020-09-07] MEDS ORDERED: NALOXONE (NARCAN) HCL 4 MG/0.1 ML SPRAY NS PRN (12:54)
[2020-09-07] MEDS ORDERED: ALBUTEROL SO4 HFA INHALER IH PRN (12:54)
[2020-09-07] MEDS ORDERED: IBUPROFEN 400 MG TABLET (FP) PO PRN (12:55)
[2020-09-07] MEDS ORDERED: MENTHOL/PHENOL 1 EACH UD MM PRN (12:55)
[2020-09-07] MEDS ORDERED: ACETAMINOPHEN 325 MG TABLET (FP) PO PRN ×2 (12:55)
[2020-09-07] MEDS ORDERED: MAG HYDROX/AL HYDROX/SIMETH 30 ML UNIT-DOSE CUP PO PRN (12:55)
[2020-09-07] MEDS ORDERED: MAGNESIUM CITRATE 300 ML BOTTLE PO PRN (12:55)
[2020-09-07] MEDS ORDERED: BISMUTH SUBSALICYLATE 524 MG/30 ML UD PO PRN (12:55)
[2020-09-07] MEDS ORDERED: MAGNESIUM HYDROX 2400MG/30ML ORAL SUSPENSION 30 ML CUP PO PRN (12:55)
[2020-09-07] MEDS ORDERED: NICOTINE POLACRILEX 2 MG GUM BUC PRN (12:55)
[2020-09-07] MEDS ORDERED: ONDANSETRON *ODT* 4 MG TABLET SL PRN (12:55)
[2020-09-07] MEDS ORDERED: METHOCARBAMOL 500 MG TABLET PO PRN (12:55)
[2020-09-07] MEDS ORDERED: chlordiazePOXIDE HCL 25 MG CAPSULE PO PRN (12:55)
[2020-09-07] MEDS ORDERED: cloNIDine HCL 0.1 MG TABLET PO PRN (12:55)
[2020-09-07] MEDS ORDERED: METHADONE HCL 10 MG TABLET (FOR DETOX USE ONLY) PO ONE (13:45)
[2020-09-07] MEDS: NICOTINE 14 MG/24 HOURS TOPICAL PATCH TD SCH (13:58)
[2020-09-07] MEDS ORDERED: hydrOXYzine PAMOATE 25 MG CAPSULE (FP) PO SCH (14:00)
[2020-09-07] MEDS ORDERED: hydrOXYzine PAMOATE 25 MG CAPSULE (FP) PO PRN (15:12)
[2020-09-07 17:22] LABS: POTASSIUM 4.2 mmol/L (3.5-5.1)
[2020-09-07 17:24] LABS: BLOOD UREA NITROGEN 20.1 mg/dL (7-18); CALCIUM 9.2 mg/dL (8.5-10.1); HEMATOCRIT 39.5 % (32.4-45.2); HEMOGLOBIN 13.3 GM/dL (10.7-15.3); MCH 30.5 pg (25.7-33.7); MCHC 33.6 g/dl (32.0-36.0); MEAN CELL VOLUME 90.9 fl (80-96); MEAN PLT VOLUME 9.9 fl (7.5-11.1); PLATELET COUNT 254 K/MM3 (134-434); RBC 4.35 M/mm3 (3.60-5.2); RDW 14.3 % (11.6-15.6); WHITE BLOOD COUNT 5.7 K/mm3 (4.0-10.0)
[2020-09-07 17:27] LABS: CREATININE 0.7 mg/dL (0.55-1.3)
[2020-09-07 17:29] LABS: BILIRUBIN,TOTAL 0.5 mg/dL (0.2-1); TOT PROT 7.5 g/dl (6.4-8.2)
[2020-09-07] MEDS: chlordiazePOXIDE HCL 25 MG CAPSULE PO SCH ×2 (17:45→22:35)
[2020-09-07] MEDS ORDERED: MELATONIN 5 MG TABLETS PO SCH (22:00)
[2020-09-07] MEDS ORDERED: SUVOREXANT 10 MG TABLET PO PRN (22:00)
[2020-09-07] MEDS ORDERED: THIAMINE HCL 100 MG TABLET (FP) PO SCH (22:00)
[2020-09-08] MEDS: chlordiazePOXIDE HCL 25 MG CAPSULE PO SCH ×3 (06:17→16:48)
[2020-09-08] MEDS: hydrOXYzine PAMOATE 50 MG CAPSULE (FP) PO PRN ×2 (06:18→16:50)
[2020-09-08] MEDS ORDERED: METHADONE HCL 5 MG TABLET (FOR DETOX USE ONLY) ONE (09:27)
[2020-09-08] MEDS ORDERED: METHADONE HCL 10 MG TABLET (FOR DETOX USE ONLY) ONE (09:27)
[2020-09-08] MEDS ORDERED: PRENATAL VITAMINS W/ FOLIC ACID TABLET (FP) PO SCH (10:00)
[2020-09-08] MEDS ORDERED: METHADONE (DETOX) 20 MG, METHADONE (DETOX) 5 MG PO ONE (10:00)
[2020-09-08] MEDS: NICOTINE 14 MG/24 HOURS TOPICAL PATCH TD SCH (10:22)
[2020-09-08 21:36] VITALS: BP 99/59; PULSE 68; TEMP 96.6
[2020-09-09] MEDS ORDERED: chlordiazePOXIDE HCL 25 MG CAPSULE PO SCH (05:00)
[2020-09-09] MEDS ORDERED: METHADONE HCL 10 MG TABLET (FOR DETOX USE ONLY) PO ONE (10:00)
[2020-09-10] MEDS ORDERED: chlordiazePOXIDE HCL 10 MG CAPSULE PO PRN
[2020-09-10] MEDS ORDERED: chlordiazePOXIDE HCL 10 MG CAPSULE PO SCH (05:00)
[2020-09-10] MEDS ORDERED: METHADONE (DETOX) 10 MG, METHADONE (DETOX) 5 MG PO ONE (10:00)
[2020-09-11] MEDS ORDERED: chlordiazePOXIDE HCL 10 MG CAPSULE PO SCH (05:00)
[2020-09-11] MEDS ORDERED: METHADONE HCL 10 MG TABLET (FOR DETOX USE ONLY) PO ONE (10:00)
[2020-09-12] MEDS ORDERED: chlordiazePOXIDE HCL 10 MG CAPSULE PO ONE (05:00)
[2020-09-12] MEDS ORDERED: METHADONE HCL 5 MG TABLET (FOR DETOX USE ONLY) PO ONE (06:00)
== END 2020-09-08 21:45 | disposition left against medical advice (07) | DRG 770 ==
LOC: YASAS 11:18 → Y3N 12:44
PROVIDERS: ADMIT Allergy & Immunology; ATTEND Allergy & Immunology
PROC: HZ2ZZZZ Detoxification Services for Substance Abuse Treatment (ICD-10-PCS; principal; 2020-09-07)
DX: F11.23 Opioid dependence with withdrawal (principal); F10.230 Alcohol dependence with withdrawal, uncomplicated; F14.20 Cocaine dependence, uncomplicated; F13.20 Sedative, hypnotic or anxiolytic dependence, uncomplicated; F12.20 Cannabis dependence, uncomplicated; F17.210 Nicotine dependence, cigarettes, uncomplicated; F19.282 Other psychoactive substance dependence with psychoactive substance-induced sleep disorder; F19.280 Other psychoactive substance dependence with psychoactive substance-induced anxiety disorder; F41.8 Other specified anxiety disorders; F41.1 Generalized anxiety disorder; G47.00 Insomnia, unspecified; J45.20 Mild intermittent asthma, uncomplicated; K21.9 Gastro-esophageal reflux disease without esophagitis; L30.9 Dermatitis, unspecified; R63.4 Abnormal weight loss; Z68.22 Body mass index [BMI] 22.0-22.9, adult; Z88.0 Allergy status to penicillin; Z91.013 Allergy to seafood
CPT/HCPCS: 36415; 80053; 81025; 85027; 86780; C9803; Q0162; U0003

== ENCOUNTER 2021-10-16 20:00 | Inpatient (IN) | payer OTHER ==
[2021-10-16 21:38] VITALS: BMI 31.3
[2021-10-16 21:55] LABS: BASO % 0.4 % (0-2.0); EOS % 1.8 % (0-4.5); HEMATOCRIT 31.8 % (32.4-45.2); LYMPH % 22.3 % (8-40); MCH 30.7 pg (25.7-33.7); MCHC 34.7 g/dl (32.0-36.0); MEAN CELL VOLUME 88.7 fl (80-96); MEAN PLT VOLUME 8.8 fl (7.5-11.1); MONO % 7.4 % (3.8-10.2); NEUT % 68.1 % (42.8-82.8); PLATELET COUNT 341 10^3/uL (134-434); RBC 3.59 M/mm3 (3.60-5.2); RDW 13.6 % (11.6-15.6); WHITE BLOOD COUNT 11.4 K/mm3 (4.0-10.0)
[2021-10-16] MEDS: DEXTROSE 5%-LACTATED RINGERS 1,000 ML IV SCH (22:00)
[2021-10-16 22:07] LABS: ACTIVATED PTT 30.9 SECONDS (25.2-36.5); INR 0.91 (0.83-1.09); PROTHROMBIN TIME (PATIENT) 10.5 SEC (9.7-13.0)
[2021-10-16 22:16] LABS: CALCIUM 8.7 mg/dL (8.5-10.1)
[2021-10-16 22:17] LABS: BLOOD UREA NITROGEN 10.1 mg/dL (7-18)
[2021-10-16 22:20] LABS: CREATININE 0.6 mg/dL (0.55-1.3)
[2021-10-16] MEDS ORDERED: MISOPROSTOL 100 MCG TABLET PV ONE (22:30)
[2021-10-17] MEDS: DEXTROSE 5%-LACTATED RINGERS 1,000 ML IV SCH (05:45)
[2021-10-17] MEDS ORDERED: methaDONE HCL 10 MG TABLET (FOR DETOX USE ONLY) PO ONE (06:23)
[2021-10-17] MEDS ORDERED: methaDONE HCL 10 MG TABLET ONE (06:37)
[2021-10-17] MEDS ORDERED: methaDONE HCL 40 MG DISPERSABLE TABLET ONE (06:37)
[2021-10-17] MEDS ORDERED: OXYTOCIN 30 UNITS in 0.9% NS 30 UNIT/500 ML INFUS.BAG IVPB SCH (07:30)
[2021-10-17 08:06] LABS: POC NITRAZINE NEG
[2021-10-17] MEDS ORDERED: OXYTOCIN 20 UNITS in 0.9% NS 20 UNIT/1,000 ML INFUS.BAG IV ONE ×2 (09:28→18:19)
[2021-10-17] MEDS ORDERED: OXYTOCIN 30 UNITS in 0.9% NS 30 UNIT/500 ML INFUS.BAG IVPB ONE (14:10)
[2021-10-17] MEDS ORDERED: LIDOCAINE HCL/PF 2% SDV 5ML VIAL ONE (15:47)
[2021-10-17] MEDS ORDERED: BUPIVACAINE HCL/PF 0.25% (2.5MG/ML) 10 ML VIAL ONE (15:47)
[2021-10-17] MEDS ORDERED: SODIUM CHLORIDE 1,000 ML IV STA (15:59)
[2021-10-17] MEDS ORDERED: FENTANYL/BUPIVACAINE/NS/PF - PCEA - 50 ML DISP.SYRIN EP ONE (16:10)
[2021-10-17] MEDS ORDERED: NALOXONE HCL 0.4 MG/ML VIAL IVPUSH PRN (16:26)
[2021-10-17] MEDS ORDERED: ACETAMINOPHEN 325 MG TABLET (FP) PO PRN (18:33)
[2021-10-17] MEDS ORDERED: WITCH HAZEL 50% (TUCKS) 40 PAD/JAR PAD TP PRN (18:33)
[2021-10-17] MEDS ORDERED: IBUPROFEN 600 MG TABLET (FP) PO PRN (18:33)
[2021-10-17] MEDS ORDERED: BENZOCAINE 20% 57 GM BOTTLE TP PRN (18:33)
[2021-10-17] MEDS ORDERED: BENZOCAINE 28 GM HEMORRHOIDAL OINTMENT TP PRN (18:33)
[2021-10-17] MEDS ORDERED: BISACODYL 10 MG SUPP.RECT RC PRN (18:33)
[2021-10-17] MEDS ORDERED: OXYTOCIN 20 UNITS in 0.9% NS 20 UNIT/1,000 ML INFUS.BAG IV SCH (18:45)
[2021-10-17 18:53] LABS: OPIATES, URI NEGATIVE (NEGATIVE); PHENCYCLIDINE,URINE NEGATIVE (NEGATIVE); URINE BENZODIAZEPINES NEGATIVE (NEGATIVE)
[2021-10-17] MEDS: FENTANYL/BUPIVACAINE/NS/PF - PCEA - 50 ML DISP.SYRIN EP SCH (18:53)
[2021-10-17 18:54] LABS: URINE BARBITURATES NEGATIVE (NEGATIVE)
[2021-10-17 19:07] LABS: COCAINE, UR NEGATIVE (NEGATIVE); METHADONE, UR POSITIVE (NEGATIVE); URINE AMPHETAMINES NEGATIVE (NEGATIVE)
[2021-10-17 21:23] LABS: CORD BASE EXCESS -5.9 mmol/L (0-2); CORD pH 7.245 (7.14-7.44)
[2021-10-18] MEDS ORDERED: methaDONE HCL 10 MG TABLET (FOR DETOX USE ONLY) PO ONE (06:17)
[2021-10-18] MEDS ORDERED: methaDONE HCL 10 MG TABLET ONE (07:00)
[2021-10-18] MEDS ORDERED: methaDONE HCL 40 MG DISPERSABLE TABLET ONE (07:00)
[2021-10-18 07:51] LABS: BASO % 0.5 % (0-2.0); EOS % 1.1 % (0-4.5); HEMATOCRIT 31.1 % (32.4-45.2); HEMOGLOBIN 10.5 GM/dL (10.7-15.3); LYMPH % 24.4 % (8-40); MCH 30.6 pg (25.7-33.7); MCHC 33.6 g/dl (32.0-36.0); MEAN CELL VOLUME 90.8 fl (80-96); MEAN PLT VOLUME 9.4 fl (7.5-11.1); MONO % 7.3 % (3.8-10.2); NEUT % 66.7 % (42.8-82.8); PLATELET COUNT 320 10^3/uL (134-434); RBC 3.43 M/mm3 (3.60-5.2); RDW 13.5 % (11.6-15.6); WHITE BLOOD COUNT 13.3 K/mm3 (4.0-10.0)
[2021-10-18] MEDS: FERROUS SO4 325 MG TABLET (FP) PO SCH ×3 (09:51→17:11)
[2021-10-18] MEDS: PRENATAL VITAMINS W/ FOLIC ACID TABLET (FP) PO SCH (09:51)
[2021-10-18] MEDS: FENTANYL/BUPIVACAINE/NS/PF - PCEA - 50 ML DISP.SYRIN EP SCH (19:16)
[2021-10-18] MEDS ORDERED: SENNOSIDES/DOCUSATE COMBO (SENNA PLUS) TABLET (UD) PO PRN (22:00)
[2021-10-19] MEDS ORDERED: methaDONE HCL 10 MG TABLET ONE (06:30)
[2021-10-19] MEDS ORDERED: methaDONE HCL 40 MG DISPERSABLE TABLET ONE (06:30)
[2021-10-19] MEDS: FERROUS SO4 325 MG TABLET (FP) PO SCH ×3 (08:56→17:21)
[2021-10-19 09:20] VITALS: BP 136/78; PULSE 78; TEMP 98.2
[2021-10-19] MEDS: PRENATAL VITAMINS W/ FOLIC ACID TABLET (FP) PO SCH (11:08)
== END 2021-10-19 18:22 | disposition home or self-care (01) | DRG 560 ==
LOC: JLDR 20:00 → J3W 10-17 19:35
PROVIDERS: ADMIT Obstetrics & Gynecology Maternal & Fetal Medicine; ATTEND Obstetrics & Gynecology Maternal & Fetal Medicine
PROC: 10E0XZZ Delivery of Products of Conception, External Approach (ICD-10-PCS; principal; 2021-10-17)
DX: O99.324 Drug use complicating childbirth (principal); F11.20 Opioid dependence, uncomplicated; Z3A.39 39 weeks gestation of pregnancy; Z37.0 Single live birth
CPT/HCPCS: 36415; 36600; 59409; 80048; 80307; 82803; 83986-QW; 85025; 85610; 85730; 86780; 86850; 86900; 86901; 88307-TC; C9803-CS; U0003; U0005